=== PATIENT | female | born 1970 | race Caucasian/White ===

== ENCOUNTER 2016-09-15 00:57 | Inpatient (IN) | payer BC ==
[2016-09-15] VITALS (8 sets, daily range): BP systolic 101–157; BP diastolic 50–75; Ht 165.1 cm; Wt 89.5 kg
[~2016-09-15] VITALS: Ht 165.1 cm; Wt 89.5 kg
[2016-09-15 01:54] LABS: BASOPHIL % 0.3 % (0-2); PLATELET COUNT 280 x10^3mcL (130-400); RED CELL DISTRIBUTION WIDTH 13.7 % (11.5-14.5)
[2016-09-15 02:05] LABS: CALCIUM 8.7 mg/dL (8.5-10.1); CARBON DIOXIDE 27.3 mmol/L (21-32); CHLORIDE SERUM 104 mmol/L (98-107); CREATININE SERUM 0.9 mg/dL (0.6-1.0); GFR1 > 60 mL/min; GLUCOSE SERUM 117 mg/dL (74-106); POTASSIUM SERUM 3.4 mmol/L (3.5-5.1); SODIUM SERUM 138 mmol/L (136-145)
[2016-09-15 02:09] LABS: ALBUMIN 3.7 g/dL (3.4-5.0); ALKALINE PHOSPHATASE 68 U/L (46-116); ALT/SGPT 23 U/L (14-59); AMYLASE 47 U/L (25-115); AST/SGOT 22 U/L (15-37); BILIRUBIN TOTAL 0.32 mg/dL (0.20-1.00); LIPASE 331 IU/L (73-393); TOTAL PROTEIN, SERUM 7.4 g/dL (6.4-8.2)
[2016-09-15] MEDS ORDERED: GLU850 PO (02:44)
[2016-09-15] MEDS ORDERED: LIPITOR40 MG PO (02:44)
[2016-09-15] MEDS ORDERED: LOSARTAN POTASS1 TA6 PO (02:44)
[2016-09-15] MEDS ORDERED: LABETALOL HYDR300 MG PO (02:44)
[2016-09-15 05:17] LABS: CHOLESTEROL/HDL RATIO 3.6
[2016-09-15 05:21] LABS: FREE T4 1.02 ng/dL (0.76-1.46); FREE THYROXINE INDEX 3.2 ug/dL (1.4-4.5); T3 TOTAL 1.6 ng/mL; T4(THYROXINE) 9.9 ug/dL (4.7-13.3)
[2016-09-16] VITALS (7 sets, daily range): BP systolic 104–140; BP diastolic 43–78
[2016-09-16 04:34] LABS: BASOPHIL % 0.3 % (0-2); PLATELET COUNT 243 x10^3mcL (130-400); RED CELL DISTRIBUTION WIDTH 13.9 % (11.5-14.5)
[2016-09-16 04:56] LABS: CALCIUM 8.4 mg/dL (8.5-10.1); CARBON DIOXIDE 23.7 mmol/L (21-32); CHLORIDE SERUM 107 mmol/L (98-107); CREATININE SERUM 0.9 mg/dL (0.6-1.0); GFR1 > 60 mL/min; GLUCOSE SERUM 111 mg/dL (74-106); MAGNESIUM 1.6 mg/dL (1.8-2.4); PHOSPHOROUS 4.7 mg/dL (2.5-4.9); POTASSIUM SERUM 3.9 mmol/L (3.5-5.1); SODIUM SERUM 139 mmol/L (136-145)
[2016-09-17 06:06] VITALS: BP 147/57
[2016-09-17 09:26] VITALS: BP 125/77
[2016-09-17] MEDS ORDERED: ATORVASTATIN CA40 M1 PO (09:43)
[2016-09-17] MEDS ORDERED: ECO81 PO (09:44)
[2016-09-17] MEDS ORDERED: PRI20 PO (09:45)
[2016-09-17] MEDS ORDERED: SYN25 PO (09:46)
[2016-09-17 09:58] LABS: CALCIUM 8.7 mg/dL (8.5-10.1); CARBON DIOXIDE 25.7 mmol/L (21-32); CHLORIDE SERUM 107 mmol/L (98-107); GFR1 > 60 mL/min; GLUCOSE SERUM 146 mg/dL (74-106); MAGNESIUM 1.7 mg/dL (1.8-2.4); POTASSIUM SERUM 3.9 mmol/L (3.5-5.1); SODIUM SERUM 140 mmol/L (136-145)
[2016-09-17 10:38] VITALS: BP 125/77
== END 2016-09-17 13:15 | disposition home or self-care (01) | DRG 391 ==
LOC: ED 00:57 → MU 03:06 → DU 03:06 → MU 09-16 07:37
PROVIDERS: Emergency Medicine; Family Medicine; Internal Medicine Gastroenterology; ADMIT Family Medicine
PROC: 0DB68ZX Excision of Stomach, Via Natural or Artificial Opening Endoscopic, Diagnostic (ICD-10-PCS; principal; 2016-09-16 10:30)
DX: K21.9 Gastro-esophageal reflux disease without esophagitis (principal); N17.0 Acute kidney failure with tubular necrosis; D68.69 Other thrombophilia; E87.6 Hypokalemia; I10 Essential (primary) hypertension; E78.5 Hyperlipidemia, unspecified; Z68.34 Body mass index [BMI] 34.0-34.9, adult; Z79.84 Long term (current) use of oral hypoglycemic drugs; K29.70 Gastritis, unspecified, without bleeding; E11.51 Type 2 diabetes mellitus with diabetic peripheral angiopathy without gangrene; K20.9 Esophagitis, unspecified; K27.9 Peptic ulcer, site unspecified, unspecified as acute or chronic, without hemorrhage or perforation; E02 Subclinical iodine-deficiency hypothyroidism
CPT/HCPCS: 43235; 80307; 82962; 83880; 84439; G0480; J1200; J1610; J1644; J2250; J2270; J2310; J2405; J3010; J3490; J7030; Q0092

== ENCOUNTER 2019-06-08 10:15 | Emergency (ER) | payer BC ==
[~2019-06-08] VITALS: Ht 165.1 cm; Wt 84.8 kg
[~2019-06-08 10:15] MED LIST: ATORVASTATIN CA40 M1 PO; ECO81 PO; GLU850 PO; LABETALOL HYDR300 MG PO; LIPITOR40 MG PO; LOSARTAN POTASS1 TA6 PO; PRI20 PO; SYN25 PO
[2019-06-08 10:18] VITALS: Ht 165.1 cm; Wt 84.8 kg
[2019-06-08 13:30] VITALS: BP 174/75
== END 2019-06-08 13:30 | disposition home or self-care (01) ==
LOC: ED 10:15
DX: R20.0 Anesthesia of skin (principal); R51 Headache; E11.9 Type 2 diabetes mellitus without complications; I10 Essential (primary) hypertension; E78.00 Pure hypercholesterolemia, unspecified; E66.9 Obesity, unspecified; Z68.31 Body mass index [BMI] 31.0-31.9, adult